=== PATIENT | male | born 1955 | race African-American/Black ===

== ENCOUNTER 2018-10-23 20:14 | Inpatient (IN) | payer OTHER ==
[~2018-10-23] VITALS: Ht 185.4 cm; Wt 84.4 kg
[2018-10-23 20:30] VITALS: BP 170/101
[2018-10-23 21:23] LABS: ABSOLUTE NEUTROPHILS 6.5 thou/uL (1.4-8.2); BASOPHILS 0.5 % (0.0-2.0); EOSINOPHILS 0.3 % (0.0-3.0); HEMATOCRIT 37.6 % (42.0-52.0); HEMOGLOBIN 12.2 gm/dL (14.0-18.0); LYMPHOCYTES 7.5 % (24.0-44.0); MCH 25.6 pg (26.0-34.0); MCHC 32.5 g/dL (28.0-37.0); MCV 78.7 fL (80.0-100.0); MONOCYTES 7.9 % (1.0-8.0); PLATELET COUNT 195 thou/uL (150-400); POLYS 83.8 % (36.0-66.0); RBC 4.78 mil/uL (4.50-6.00); RDW 18.2 % (10.5-14.5); WBC 7.8 thou/uL (4.0-11.0)
[2018-10-23 21:30] LABS: CALCIUM 10.2 mg/dL (8.5-10.1); CREATININE 1.5 mg/dL (0.7-1.3); POTASSIUM 4.2 mmol/L (3.5-5.1)
--- NOTE | 2018-10-23 22:09 | NUR ---
SPOKE W/ STAFF AT [facility]. PT RESIDED AT THAT FACILITY. PT LEFT YESTERDAY AFTERNOON AND LATER WAS AT BROTHERS HOUSE. PT LEFT BROTHERS YESTERDAY EVENING AND WAS NOT HEARD FROM AGAIN UNTILL BROUGHT HERE BY EMS. PT NORMALLY AOX4 AND AMBULATES W/ A STEADY GAIT.
[2018-10-23 22:28] LABS: URINE BILIRUBIN 1+ (Negative); URINE BLOOD NEGATIVE (Negative); URINE CLARITY CLEAR; URINE COLOR YELLOW; URINE GLUCOSE-RANDOM* NEGATIVE (Negative); URINE KETONES 1+ (Negative); URINE LEUKOCYTES-REFLEX NEGATIVE (Negative); URINE NITRITE-REFLEX NEGATIVE (Negative); URINE PROTEIN (DIPSTICK) 1+ (Negative); URINE SPECIFIC GRAVITY >= 1.030 (1.005-1.035); URINE UROBILINOGEN 0.2 E.U./dl (0.2-1.0)
[2018-10-23 23:13] LABS: AMP/METHAMP POSITIVE (Negative); BARBITURATES Negative (Negative); BENZODIAZEPINES Negative (Negative); COCAINE Negative (Negative); METHADONE Negative (Negative); OPIATES Negative (Negative); PCP Negative (Negative)
[2018-10-23 23:29] LABS: INR 2.8
[2018-10-24] VITALS (7 sets, daily range): BP systolic 97–131; BP diastolic 51–81
[2018-10-24] MEDS ORDERED: COUMADIN7.5 MG PO (01:32)
[2018-10-24] MEDS ORDERED: LASIX 40 MG TAB40 M2 PO (01:33)
[2018-10-24] MEDS ORDERED: DIGOXIN125 MCG PO (01:36)
[2018-10-24] MEDS ORDERED: HYDRALAZINE 5050 MG PO (01:36)
[2018-10-24] MEDS ORDERED: NORVASC5 MG PO (01:36)
[2018-10-24] MEDS ORDERED: TYLENOL EXTRA500 MG PO (01:36)
[2018-10-24] MEDS ORDERED: LISINOPRIL40 MG PO (01:37)
[2018-10-24] MEDS ORDERED: COUMADIN 4 MG TA4 M1 PO (01:39)
[2018-10-24] MEDS ORDERED: LASIX 20 MG TAB20 MG PO (01:40)
[2018-10-24] MEDS ORDERED: FEOSOL325 M1 PO (01:41)
[2018-10-24] MEDS ORDERED: ISOSORBIDE MONO60 M1 PO (01:42)
[2018-10-24] MEDS ORDERED: COREG25 MG PO (01:43)
[2018-10-24] MEDS ORDERED: COLCHICINE0.6 MG PO (01:47)
[2018-10-24] MEDS ORDERED: PRO-STAT LIQUID30 ML PO (01:49)
[2018-10-24 05:41] LABS: CALCIUM 9.8 mg/dL (8.5-10.1); CREATININE 1.2 mg/dL (0.7-1.3); POTASSIUM 3.6 mmol/L (3.5-5.1)
--- NOTE | 2018-10-24 16:46 | NUR ---
INITIAL ASSESSMENT: Received consult. GAYATRI reviewed chart and spoke with nursing and attending physician. Pt was admitted from [facility] due to A-fib with RVR. Pt was found by [facility] and brought to the ER. Pt was postive for meth. 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 Pt checked himself out on Wednesday morning (10/22) to go to [employer], and did not return. Per liaison, pt's brother, Joaquin, was contacted. When pt did not return Wednesday night, they checked him out AMA. GAYATRI met with pt at bedside. Introduced role of GAYATRI. Pt is alert/orientated and able to answer questions appropriately. Pt states he is normally independent with ADLs and does not use DME. Pt states he has been at [facility] for about a month. Pt confirms his plan is to return to [facility] when ready for discharge. Pt gave SW consent to speak with his brother, Joaquin. Liaison states they are able to accept pt back, but will confirm with the DON. GAYATRI faxed clinical info to [facility] for review. GAYATRI left voice message for pt's brother, Joaquin ([phone]) to provide update and notify of anticipated discharge. GAYATRI is following to assist as needed with discharge planning.
--- NOTE | 2018-10-24 17:01 | EKG ---
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 Travel: [place] : [id number] Requested By: Latoya Sands Order Number: [id number] MD: Lucas Mata Measurements Intervals Graham Rate: 107 P: NE: QRS: 40 QRSD: 100 T: 244 QT: 301 QTc: 402 Interpretive Statements Atrial fibrillation LVH with secondary repolarization abnormality No previous ECG available for comparison Electronically Signed On 10-24-2018 17:01:40 CDT by Lucas Mata [email or web address] ��������������������������������������������� <ELECTRONICALLY SIGNED> ���������������������������������������� By: Lucas Mata MD, [facility] ��������������������������������������������� 10/24/18 1701 0058 0058 Lucas Mata MD, FACC /EPI
[2018-10-25 05:04] VITALS: BP 142/64
--- NOTE | 2018-10-25 06:01 | NUR ---
ASSUMED CARE AT 1900. PATIENT AO X 2-3. PATIENT DENIES CHEST PAIN BUT REPORT MILD HEADACHE. TYLENOL GIVEN AND EFFECTIVE. 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 VITALS STABLE. PT WAS UP IN HIS CHAIR WHOLE NIGHT. WILL CONTINUE TO MONITOR
[2018-10-25 07:15] VITALS: BP 136/73
[2018-10-25 11:10] VITALS: BP 127/79
--- NOTE | 2018-10-25 12:50 | NUR ---
GAYATRI was notified by [facility] liaison that pt will not be accepted back to their facility due to pt leaving AMA from their facility over the weekend. [facility] liaison will be onsite to discuss this with pt. GAYATRI discussed with attending physician. GAYATRI is following to assist as needed with discharge planning.
[2018-10-25 15:10] VITALS: BP 92/69
--- NOTE | 2018-10-25 17:14 | NUR ---
CM FOLLOWED UP WITH PT THIS AFTERNOON AFTER HE HAD BEEN INFORMED THAT HE COULDN'T RETURN TO [facility] INQUIRING TO WHERE PT PLANNED TO DISCHARGE TO. CM INDICATED THAT WE COULD SEND REFERRALS TO OTHER LTC FACILITIES FOR POSSIBLE ADMISSION. PT INDICATED NO THAT HE DIDN'T WANT TO GO TO A FACILITY. PT INDICATED HE WAS GOING TO GET AN APARTMENT CM EXPLAINED THAT HE CAN'T STAY HERE UNYIL HE FINDS AN APARTMENT. PT INDICATED THAT HE WOULD HIS NIECE IF HE COULD STAY WITH HER. CM INDICATED THAT ASSISTANCE FOR HOMLESS RETIREMENT COLD ALSO BE ARRANGED. C, TO FOLLOW UP.
--- NOTE | 2018-10-25 18:03 | NUR ---
AA0X2 NAME AND PLACE. PLESANT AND REORIENTS. SL RIGHT FOREARM. PERFORMED ADL'S WITH MINIMAL ASSISTANCE. CONSTANT REMINDERS TO KEEP PAID INTERNSHIP ON. UP TO BR WITH MINIMAL ASSIST. GOOD APPETITE NO COMPLIANTS OF PAIN. ON ROOM AIR. NO EDEMA SKIN INTACT.
[2018-10-25 19:15] VITALS: BP 140/79
--- NOTE | 2018-10-26 02:21 | NUR ---
ASSUMED CARE AT 1900. PT AO X 1. PT WAS CONFUSED UNABLE TO TELL WHAT WAS GOING ON. VITALS STABLE. AT 0100. PT WAS AWAKENED WITH AGITATION AND EXTENSIVE CONFUSION. PT WAS INSISTING FOR STAFF TO CALL HIS BROTHER AND REPORT THAT HE HAD HAD A HEART ATTACK. PT ALSO WASN"T TO AWARE WHERE HE WAS AND WANTED TO GO TO HIS ROOM. STRUCTURAL WELDER JARED NOTIFIED OF HIS AGITATION. HALDOL Q6H. PT WAS ABLE TO SETTLE AND SLEEP AFTER HALDOL. WILL CONTINUE TO MONITOR.
[2018-10-26 06:00] VITALS: BP 137/83
[2018-10-26 08:00] VITALS: BP 124/79
[2018-10-26 15:10] VITALS: BP 92/60
--- NOTE | 2018-10-26 15:16 | NUR ---
AA0X1 PLEASANTLY CONFUSED. GOOD APPETITE. NO C/O PAIN. UAL IN ROOM AND WORKED WITH PT. LUNGS DIMINISHED. SKIN INTACT NO EDEMA.
--- NOTE | 2018-10-26 17:43 | NUR ---
SW reviewed chart and spoke with attending physician. Pt is progressing towards goals for discharge. SW met with pt at bedside to discuss discharge plan. Pt states he [facility]. SW discussed that referrals can be sent to other LTC facilities. Pt states he does not want to go to a facility. SW asked about family support. Pt states his niece might be able to help him, but he does not have her phone number. SW left voice message for pt's brother, Joaquin, on Wednesday. No call back at this time. SW explained that pt's option may be to go to a homeless [facility], if there is not any other options. Pt verbalized understanding. SW updated nursing and attending physician. SW is following to assist as needed with discharge planning.
[2018-10-26 19:26] VITALS: BP 108/66
--- NOTE | 2018-10-27 03:28 | NUR ---
PT SLEPT WHOLE NIGHT. NO COMPLAINTS REPORTED. A0X1. DENIES PAIN. VITALS STABLE. WILL CONTINUE TO MONITOR.
[2018-10-27 04:02] VITALS: BP 129/88
[2018-10-27 07:28] VITALS: BP 121/65
--- NOTE | 2018-10-27 10:05 | NUR ---
ASSUMED CARE OF PT AT 0700. PT AWAKE AND NO COMPLAINTS AT THIS MOMENT. VSS. AFIB ON THE MONITOR. NO PAIN. PT RESTING IN BED WITH CALL LIGHT IN REACH. WILL CONTINUE TO MONITOR.
--- NOTE | 2018-10-27 10:46 | NUR ---
DISCHARGE PLANNING. PATIENT IS MEDICALLY READY FOR DISCHARGE TODAY. 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 REFERRAL FAXED TO [facility] FOR DISCHARGE PLACEMENT NEEDS. CALL PLACED TO [facility] TO NOTIFY OF PATIENTS LTC PLACEMENT NEED AND THAT PATIENT IS READY FOR DISCHARGE TODAY. [facility] TO REVIEW REFERRAL AND CONTACT ONCE COMPLETE.
[2018-10-27 11:20] VITALS: BP 100/56
--- NOTE | 2018-10-27 11:55 | NUR ---
SW reviewed chart and spoke with nursing and attending physician. Pt is medically stable for discharge today. SW met with pt at bedside to discuss discharge plan. Pt states he has not been able to speak with his family to confirm if he is able to stay with them. SW explained the option is a homeless [facility]. Pt asked about long term placement. SW explained that referrals can be sent, but if they are not able to accept pt, he would need to go to a homeless [facility]. Options discussed with pt. No preference voiced. Pt verbalized understanding. brand planner to fax referrals to [facility] and [facility]. [facility] is unable to accept pt due to recent meth use. Awaiting input from [facility]. GAYATRI is following to assist as needed with discharge planning.
[2018-10-27] MEDS ORDERED: CARDIZEM CD120 MG PO (13:31)
[2018-10-27 16:41] VITALS: BP 100/56
--- NOTE | 2018-10-27 17:34 | NUR ---
Met with patient to discuss discharge destination. Patient unable to recall address of a possible friend to stay with and agreed to leave via taxi to [employer] [place]. Cab voucher obtained and given to patient nurse. Patient agreeable with plan and destination upon discharge as witnessed by CLINICAL WRITER in the room.
== END 2018-10-27 17:29 | disposition home or self-care (01) | DRG 92 ==
LOC: ER 20:14 → 2N 10-24 01:06 → EROBS 10-24 01:06 → 2N 10-24 02:21
PROVIDERS: Nurse Practitioner Family; Student in an Organized Health Care Education/Training Program; ADMIT Internal Medicine
DX: G92 Toxic encephalopathy (principal); N17.9 Acute kidney failure, unspecified; I42.9 Cardiomyopathy, unspecified; I48.2 Chronic atrial fibrillation; F15.10 Other stimulant abuse, uncomplicated; K21.9 Gastro-esophageal reflux disease without esophagitis; I10 Essential (primary) hypertension; M10.9 Gout, unspecified; D63.8 Anemia in other chronic diseases classified elsewhere; Z71.51 Drug abuse counseling and surveillance of drug abuser; Z59.0 Homelessness; Z79.899 Other long term (current) drug therapy; Z91.14 Patient's other noncompliance with medication regimen; Z79.01 Long term (current) use of anticoagulants
CPT/HCPCS: 10081